=== PATIENT | male | born 1955 | race Caucasian/White ===

== ENCOUNTER 2018-11-10 10:36 | Emergency (ER) | payer MEDICARE, OTHER ==
[~2018-11-10] VITALS: Ht 162.6 cm; Wt 75.6 kg
[~2018-11-10 10:36] MED LIST: bp med
[2018-11-10 10:47] VITALS: Ht 162.6 cm; Wt 75.6 kg
[2018-11-10] MEDS ORDERED: KETOROLAC 30 MG INJ IV STA (12:26)
[2018-11-10] MEDS ORDERED: ONDANSETRON 4 MG INJ IV STA (12:26)
[2018-11-10] MEDS ORDERED: SOD CHLORIDE 0.9% 100 ML ONE (14:12)
[2018-11-10] MEDS ORDERED: IOHEXOL 300MG/ML 150 ML BTL ONE (14:12)
[2018-11-10] MEDS ORDERED: TRAM50TA2 PO (15:27)
[2018-11-10] MEDS ORDERED: IBUP-1542 PO (15:27)
[2018-11-10] MEDS ORDERED: DEXAMETHASONE 10 MG/ML 1 ML INJ IV ONE (15:30)
--- NOTE | 2018-11-10 15:30 | ERD ---
ER Documentation Chief Complaint Chief Complaint BACK PAIN RADAITES TO THE LEG AREA X 3 DAYS HPI 63-year-old male presents with back pain rating to the bilateral lower extremities with paresthesias. Denies any history of trauma or inciting events. He denies any fevers, chills, weakness, deficits, bowel or bladder and comments, urinary complaints. He has a history of hypertension. ROS All systems reviewed and are negative except as per history of present illness. Medications Home Meds Active Scripts Ibuprofen* (Motrin*) 600 Mg Tab, 600 MG PO Q6, #30 TAB Prov:CLAUDIO STEWART MD 11/10/18 Tramadol HCl (Tramadol HCl) 50 Mg Tablet, 50 MG PO Q4 PRN for PAIN, #20 TAB Prov:CLAUDIO STEWART MD 11/10/18 Reported Medications [bp med] No Conflict Check, DAILY 09/08/13 Allergies Allergies: Coded Allergies: No Known Drug Allergies (Verified Allergy, Mild, 09/08/13) PMhx/Soc History of Surgery: Yes (RIGHT HERNIA REPAIR) Hx Neurological Disorder: No Hx Respiratory Disorders: No Hx Cardiac Disorders: No (HYPOTENSION ) Hx Miscellaneous Medical Probl: No Hx Alcohol Use: No Hx Substance Use: No Hx Tobacco Use: No FmHx Family History: No diabetes, No coronary disease, No other Physical Exam Vitals Vital Signs Date Temp Pulse Resp B/P (MAP) Pulse Ox O2 O2 Flow FiO2 Time Delivery Rate 11/10/18 98.4 93 19 147/88 97 10:47 (107) Physical Exam Const: No acute distress Head: Atraumatic Eyes: Normal Conjunctiva ENT: Normal External Ears, Nose and Mouth. Neck: Full range of motion. No meningismus. Resp: Clear to auscultation bilaterally Cardio: Regular rate and rhythm, no murmurs Abd: Soft, non tender, non distended. Normal bowel sounds Skin: No petechiae or rashes Back: No midline or flank tenderness patient points to the L2-L3 bilaterally as area of pain. No exquisite tenderness no midline tenderness or deformities. Ext: No cyanosis, or edema Neur: Awake and alert. Ambulatory with discomfort but no deficits or weakness. Psych: Normal Mood and Affect Result Diagram: 11/10/18 1239 11/10/18 1239 Results 24 hrs Laboratory Tests Test 11/10/18 12:39 White Blood Count 5.4 10^3/ul Red Blood Count 5.67 10^6/ul Hemoglobin 16.4 g/dl Hematocrit 49.5 % Mean Corpuscular Volume 87.3 fl Mean Corpuscular Hemoglobin 28.9 pg Mean Corpuscular Hemoglobin Concent 33.1 g/dl Red Cell Distribution Width 12.8 % Platelet Count 241 10^3/UL Mean Platelet Volume 9.0 fl Immature Granulocytes % 0.200 % Neutrophils % 58.5 % Lymphocytes % 32.0 % Monocytes % 7.3 % Eosinophils % 1.1 % Basophils % 0.9 % Nucleated Red Blood Cells % 0.0 /100WBC Immature Granulocytes # 0.010 10^3/ul Neutrophils # 3.1 10^3/ul Lymphocytes # 1.7 10^3/ul Monocytes # 0.4 10^3/ul Eosinophils # 0.1 10^3/ul Basophils # 0.1 10^3/ul Nucleated Red Blood Cells # 0.0 10^3/ul Urine Color YELLOW Urine Clarity CLEAR Urine pH 7.0 Urine Specific [place] 1.008 Urine Ketones NEGATIVE mg/dL Urine Nitrite NEGATIVE mg/dL Urine Bilirubin NEGATIVE mg/dL Urine Urobilinogen NEGATIVE mg/dL Urine Leukocyte Esterase NEGATIVE [place]/ul Urine Hemoglobin NEGATIVE mg/dL Urine Glucose NEGATIVE mg/dL Urine Total Protein NEGATIVE mg/dl Sodium Level 141 mmol/L Potassium Level 4.8 mmol/L Chloride Level 102 mmol/L Carbon Dioxide Level 31 mmol/L Anion Gap 8 Blood Urea Nitrogen 10 mg/dl Creatinine 0.84 mg/dl Est Glomerular Filtrat Rate mL/min > 60 mL/min Glucose Level 104 mg/dl Calcium Level 9.5 mg/dl Total Bilirubin 0.4 mg/dl Direct Bilirubin 0.00 mg/dl Indirect Bilirubin 0.4 mg/dl Aspartate Amino Transf (AST/SGOT) 20 IU/L Alanine Aminotransferase (ALT/SGPT) 20 IU/L Alkaline Phosphatase 69 IU/L Total Protein 8.0 g/dl Albumin 4.7 g/dl Globulin 3.30 g/dl Albumin/Globulin Ratio 1.42 Lipase 104 U/L Current Medications Medications Dose Sig/Alesha Start Time Status Last (Trade) Ordered Route PRN Stop Time Admin Dose Reason Admin Ondansetron 4 mg ONCE STAT 11/10/18 DC 11/10/18 HCl (Zofran IV 12:26 12:53 Inj) 11/10/18 12:28 Ketorolac 30 mg ONCE STAT 11/10/18 DC 11/10/18 Tromethamine IV 12:26 12:53 (Toradol) 11/10/18 12:28 IV Flush 10 ml STK-MED 11/10/18 DC 11/10/18 (NS 10 ml) ONCE .ROUTE 14:12 14:22 11/10/18 14:13 Sodium 100 ml @ ud STK-MED 11/10/18 DC 11/10/18 Chloride ONCE .ROUTE 14:12 14:22 11/10/18 14:13 Iohexol 150 ml STK-MED 11/10/18 DC 11/10/18 (Omnipaque ONCE .ROUTE 14:12 14:22 300mg/ ml) 11/10/18 14:13 8 mg ONCE ONCE 11/10/18 Dexamethasone IV 15:30 (Decadron) 11/10/18 15:31 Procedures/MDM Patient presents with low back pain with radiation to bilateral extremities with sensation of paresthesias. He has no reproducible musculoskeletal tenderness. Concern is for intra-abdominal cause or possible aortic cause. An IV was obtained. Is given Toradol 30 mg IV, CBC and CMP and urine normal. CT Julieth of the abdomen pelvis shows no evidence of aortic dissection, aneurysm, ischemia. There is an incidental finding of a 1 cm lesion on possibly the tail the pancreas as well as a large prostate. Patient had resolution of pain after Toradol, Zofran and Decadron 8 mg IV. Patient may have musculoskeletal pain rating to lower extremities. We treated with tramadol, ibuprofen, recommendations for exercises, primary care follow-up and return precautions for fevers, weakness, worsening pain, new worsening symptoms. He was advised to see primary doctor as well for follow-up of incidental abnormalities noted on CT scan. He has no signs or symptoms of cauda equina syndrome, mesenteric ischemia, aortic disease, deficits, epidural abscess, bacterial infection, additional concerning signs or symptoms. The patient's blood pressure was elevated (>120/80) but appears stable without evidence of hypertension emergency or urgency. The patient was counseled about the risks of hypertension and urged to pursue outpatient monitoring and therapy within a week with their primary care physician. I discussed the findings with the patient. I advised the patient to follow-up with the primary physician in about 1-2 days, sooner if needed and return if any concern. Departure Diagnosis: Primary Impression: Back pain Back pain location: low back pain Chronicity: acute Back pain laterality: bilateral Sciatica presence: unspecified whether sciatica present Qualified Codes: M54.5 - Low back pain Condition: Stable Patient Instructions: Back Pain W/ Sciatica Referrals: NO PRIMARY,CARE PHYSICIAN (PCP) Additional Instructions: No abnormalities on CT to explain cause of pain or emergent abnormalities. Likely muscular skeletal pain from back. Recommend follow-up with primary doctor for evaluation of prostate and lesion of spleen or pancreas noted on CT. Recommend exercises at home, primary care follow-up and return for fevers, vomiting, chest pain, shortness of breath, weakness, new worsening symptoms. CLAUDIO STEWART MD November 10, 2018 15:30
[2018-11-10 15:53] VITALS: BP 121/77; PULSE 81; RESP 18
== END 2018-11-10 16:09 | disposition home or self-care (01) ==
LOC: FTE 10:36
DX: M54.5 Low back pain (principal)
CPT/HCPCS: 36415; 75635; 80053; 81003; 83690; 85025; 96374; 96375; 99285; J1100; J1885; J2405; Q9967